=== PATIENT | female | born 1965 | race Caucasian/White ===

== ENCOUNTER → 2017-02-08 | Outpatient (CLI) | payer MEDICAID ==
[~2017-02-08] MED LIST: DICLOFENAC SOD75 MG PO; EC NAPROSYN500 MG PO; HYCODAN COUMPO473 ML OR; LASIX40 MG PO; LEVOTHYROXINE0.05 M3; LOPRESSOR50 MG PO; TIZANIDINE4 MG PO; TRAMADOL50 M1; VOLTAREN75 MG PO
--- NOTE | 2017-02-08 16:44 | RADIOLOGY REPORT PS360 ---
US PELVIS-TRANSVAGINAL ONLY HISTORY: Postmenopausal bleeding POST MENOPAUSAL BLEEDING ORDERING PHYSICIAN: Brendan Murrell MD PATIENT AGE: 51 years COMPARISON: None FINDINGS: The uterus has an unremarkable appearance measuring 6 x 3 x 4 cm with a combined endometrial thickness of 2 mm. scar is present. Nabothian cyst is present along the lower cervix. No cul-de-sac fluid apparent. The right ovary is 1.5 x 1.3 cm. Left ovary is 1.5 x 1.1 cm. No cul-de-sac fluid. IMPRESSION: Unremarkable pelvic ultrasound
== END ==
LOC: RAD 01-28 14:30
DX: N95.0 Postmenopausal bleeding (principal)

== ENCOUNTER → 2017-03-01 | Outpatient (CLI) | payer MEDICAID | LOC: LAB 17:07 | DX: N39.0 Urinary tract infection, site not specified (principal) ==

== ENCOUNTER → 2017-03-23 | Outpatient (CLI) | payer MEDICAID | LOC: LAB 17:18 | DX: N39.0 Urinary tract infection, site not specified (principal) ==

== ENCOUNTER → 2017-04-13 | Outpatient (CLI) | payer MEDICAID ==
--- NOTE | 2017-04-14 08:30 | RADIOLOGY REPORT PS360 ---
MRI-C-SPINE W/O, MRI-3D RENDERING/MYELOGRAM HISTORY: Severe headache CERVICAL SPINE DISEASE, INTRACTABLE MIGRAINE ORDERING PHYSICIAN: Ashlee Wolf APRN PATIENT AGE: 51 years COMPARISON: None TECHNIQUE: Standard multiplanar multiecho sequences are performed without contrast. 3-D MIP and myelographic images are also rendered and reviewed FINDINGS: There is normal alignment. The craniocervical junction is unremarkable. C2-C3: Unremarkable. C3-C4: Mild degenerative disc disease with small concentric bulging disc. Canal is narrowed at 9 mm without cord impingement. There is mild left-sided foraminal narrowing from uncovertebral hypertrophy. C4-C5: Degenerative disc disease with bulging disc and broad-based central disc protrusion versus disc osteophyte complex. There is canal stenosis at 7 mm with mild impingement and flattening of the cord. It canal measures 7 mm. There is minimal hypertrophic change of the lamina posteriorly as well contributing to the canal stenosis. C5-C6, C6-C7, C7-T1: Unremarkable. Minimal anterolisthesis of C7 on T1 and 2 mm. IMPRESSION: 1. Degenerative disc disease C3-C4 with small concentric bulging disc. Canal is narrowed at 9 mm without cord impingement. There is mild left-sided foraminal narrowing from uncovertebral hypertrophy. 2. Degenerative disc disease C4-C5 with bulging disc and broad-based central disc protrusion versus disc osteophyte complex. There is canal stenosis at 7 mm with mild impingement and flattening of the cord. The canal measures 7 mm. There is minimal hypertrophic change of the lamina posteriorly as well contributing to the canal stenosis.
== END ==
LOC: RAD 04-12 13:45
DX: M48.9 Spondylopathy, unspecified (principal); G43.011 Migraine without aura, intractable, with status migrainosus

== ENCOUNTER → 2017-05-07 | Outpatient (CLI) | payer MEDICAID ==
--- NOTE | 2017-05-07 15:31 | RADIOLOGY REPORT PS360 ---
US THYROID HISTORY: Follow-up thyroid nodules GOITER ORDERING PHYSICIAN: Gerardo Boykin MD PATIENT AGE: 51 years COMPARISON: 12/31/2016 FINDINGS: Multinodular goiter unchanged. Right lobe: 4.4 x 1.5 x 1.5 cm. Heterogeneous echogenicity Isoechoic nodule superior pole 1 cm unchanged Slightly hypoechoic nodule lower pole an 8 mm unchanged Left lobe: 4.6 x 1.3 x 1.5 cm. 6 mm slightly hypoechoic nodule superiorly unchanged 1 cm nodule mid polar area isoechoic unchanged 1 cm slightly hypoechoic nodule mid polar region unchanged. Isthmus: Thickened at 6 mm. No change 9 mm isoechoic nodule in the right paracentral aspect of the isthmus. IMPRESSION: No change multinodular goiter.
== END ==
LOC: RAD 04-29 15:30
DX: E04.9 Nontoxic goiter, unspecified (principal)

== ENCOUNTER → 2017-05-25 | Outpatient (CLI) | payer MEDICAID ==
--- NOTE | 2017-05-31 11:21 | RADIOLOGY REPORT PS360 ---
DIG MAMM-SCREEN EVAN W/CAD CAD Screening ORDERING PHYSICIAN : Brendan Murrell MD PATIENT AGE: 51 years GENDER: Female COMPARISON: Digital mammograms: October 2010, February 2016, 2014, January 2014. Also April 2012 INDICATION: Routine screening . No new complaints. Notes Estro cream twice a week Previous stereotactic excisional benign biopsy left breast. Family history: Maternal aunt breast cancer age 52. TECHNIQUE: Standard CC and MLO images were obtained. R2 CAD reviewed. FINDINGS: Mild to moderate fibroglandular elements most evident the deep superior breast bilaterally. Prior films are helpful and supportive stable architecture bilaterally. RIGHT BREAST: Area of density at the deep left breast... Slightly medial to mid axis is stable since studies dating back to 2010 LEFT BREAST:. No new findings. The glandular density elements at the upper-outer quadrant appear similar to studies dating back to 2011, 2010. IMPRESSION: ------- Stable bilateral mammogram no new areas of concern. . Follow-up in one year recommended Stable areas mild fibroglandular asymmetry BI-RADS CATEGORY: 1_Negative RECOMMENDED FOLLOWUP: 12M 12 MONTH FOLLOW-UP (A letter has been sent to the patient regarding results of the study.)
== END ==
LOC: RAD 05-14 16:30
DX: Z12.31 Encounter for screening mammogram for malignant neoplasm of breast (principal)
CPT/HCPCS: G0202